=== PATIENT | male | born 1970 | race Caucasian/White ===

== ENCOUNTER 2021-09-26 01:37 | Day surgery (SDC) | payer BC, SELFPAY ==
[2021-09-06 13:47] VITALS: BMI 30.2
[2021-09-26 06:38] VITALS: BP 130/83; PULSE 66; RESP 18; TEMP 36.1; O2SAT 98; BMI 30.2
[2021-09-26] MEDS: LACTATED RINGERS 1,000 ML 150 ML IV CONT (07:01)
--- NOTE | 2021-09-26 07:41 | WPDANESEPPF ---
Anes - Initial Pre Proc Eval Procedure: Operation Date: 09/26/21 08:00 Proposed Procedures p Screening Colonoscopy - Corey Engle MD Date/Time: 09/26/21 07:41 Surgeon: Corey Engle MD Pre Op Diagnosis: hx of colon polyps Patient Data Age: 51 Gender: M Height: 1.75 m Weight: 92.7 kg Last Vital Signs Temp 96.9 F L 09/26/21 06:38 Pulse 66 09/26/21 06:38 Resp 18 09/26/21 06:38 BP 130/83 09/26/21 06:38 Pulse Ox 98 09/26/21 06:38 O2 Del Method Room Air 09/26/21 06:38 Allergies Allergy/AdvReac Type Severity Reaction Status Date / Time No Known Allergies Allergy Verified 09/26/21 06:46 Home Medications Medication Instructions Recorded Confirmed Type aspirin 81 mg capsule 81 mg PO DAILY 09/06/21 09/26/21 History atorvastatin 10 mg tablet 10 mg PO DAILY 09/06/21 09/26/21 History loratadine 10 mg tablet (Claritin) 10 mg PO DAILY 09/06/21 09/26/21 History omega-3 fatty acids 1 cap PO DAILY 09/06/21 09/26/21 History Patient hx anesthesia problems: none Family hx anesthesia problems: none Results Review: All pre-operative results and documents have been reviewed as part of the pre-operative evaluation. [facility] Social History Social History Alcohol intake: current Drinks per week: 5 Substance use: current Substance use type: marijuana Living arrangements: with family Spiritual care concerns: No Anes - Eval Final PreProcedure Day of Procedure 09/26/21 07:41 Patient weight: obese Heart: regular rate and rhythm Lungs: clear to auscultation Airway: Mallampati scale class II Neurological: alert and oriented Last oral intake: >/= 8 hours ASA classification: III Emergent: no Anesthetic plan: proceed Anesthesia type and monitoring: general GIVS and standard monitoring Results Review: All pre-operative results and documents have been reviewed as part of the pre-operative evaluation. Informed Consent: The patient's anesthetic plan and its attendant risks and benefits were discussed with the patient/family/POA. Questions were solicited and answers provided to the satisfaction of the patient/family/POA.
--- NOTE | 2021-09-26 07:44 | PM.HPGS ---
History of Present Illness History of Present Illness Consent: Risks, benefits, and alternatives have been discussed and questions answered. Patient agrees to proceed with procedure. Chief complaint: hx of colon polyps Narrative: Paulo Hemphill is a 51 year old male with colon cancer at 44yo, s/p surgery, now getting colonoscopies every 3 years Review of Systems Constitutional: Constitutional: Denies headache(s) and Denies weakness Eyes: Eyes: Denies blurry vision ENT: Reports Normal hearing present, Denies headache(s) and Denies neck pain Cardiovascular: Cardiovascular: Denies chest pain and Denies dyspnea Respiratory: Respiratory: Denies dyspnea Gastrointestinal: Gastrointestinal: Reports no additional gastrointestinal complaints Genitourinary: Genitourinary: Denies dysuria Musculoskeletal: Musculoskeletal: Denies neck pain Integumentary/Breasts: Skin/Breast: Denies dry skin Neurologic: Reports Normal hearing present, Denies headache(s) and Denies weakness Psychiatric: Psychiatric: Denies anxiety Endocrine: Endocrine: Denies change in body appearance Hematologic/Lymphatic: Hematologic/Lymphatic: Denies easy bleeding Allergic/Immunologic: Allergic/Immunologic: Denies urticaria PMFSH Past Medical History Medical History (Updated 09/26/21 @ 07:45 by Corey Engle MD) Colon cancer Social History Social History Alcohol intake: current Drinks per week: 5 Substance use: current Substance use type: marijuana Living arrangements: with family Spiritual care concerns: No Meds Home Medications and Allergies Home Medications Medication Instructions Recorded Confirmed Type aspirin 81 mg capsule 81 mg PO DAILY 09/06/21 09/26/21 History atorvastatin 10 mg tablet 10 mg PO DAILY 09/06/21 09/26/21 History loratadine 10 mg tablet (Claritin) 10 mg PO DAILY 09/06/21 09/26/21 History omega-3 fatty acids 1 cap PO DAILY 09/06/21 09/26/21 History Allergies Allergy/AdvReac Type Severity Reaction Status Date / Time No Known Allergies Allergy Verified 09/26/21 06:46 Vital Signs Vital Signs - 24 hr 09/26/21 06:38 Temperature 96.9 F L Pulse Rate 66 Respiratory Rate 18 Blood Pressure 130/83 Pulse Oximetry 98 Oxygen Delivery Room Air Exam Const: General: comfortable and no acute distress HENMT: General nose exam: Normal nares present Eyes: General: appearance normal, both eyes and all related structures Neck: Neck: no JVD Resp: Auscultation: clear to auscultation bilaterally Cardio: Rate: regular rate Rhythm: regular rhythm GI: Inspection: non-distended GI Palp: Yes Soft to palpation Skin: General skin exam: normal color Neuro: General: gait normal Speech: normal speech Extrem: General: normal to inspection Psych: Mental Status: mental status grossly normal Assessment and Plan Assessment and plan (1) Colon cancer: Code(s): C18.9 - Malignant neoplasm of colon, unspecified Status: Acute Assessment and Plan: already treated, last colonoscopy negative, due to have another one
[2021-09-26 08:03] VITALS: BP 101/68; PULSE 66; RESP 16; O2SAT 95
[2021-09-26 08:13] VITALS: BP 103/69; PULSE 61; RESP 16; O2SAT 96
[2021-09-26 08:23] VITALS: BP 111/74; PULSE 65; RESP 15; O2SAT 100
== END 2021-09-26 08:38 | disposition home or self-care (01) ==
PROVIDERS: PCP Internal Medicine; Visit Provider Internal Medicine Gastroenterology
PROC: 0DJD8ZZ Inspection of Lower Intestinal Tract, Via Natural or Artificial Opening Endoscopic (ICD-10-PCS; CPT 45378; principal; 2021-09-26 08:00)
DX: Z12.11 Encounter for screening for malignant neoplasm of colon (principal); K63.5 Polyp of colon; K64.8 Other hemorrhoids; Z98.0 Intestinal bypass and anastomosis status; Z90.49 Acquired absence of other specified parts of digestive tract; Z86.010 Personal history of colon polyps; Z85.038 Personal history of other malignant neoplasm of large intestine; F12.90 Cannabis use, unspecified, uncomplicated; Z79.82 Long term (current) use of aspirin; E66.9 Obesity, unspecified; Z68.30 Body mass index [BMI] 30.0-30.9, adult
CPT/HCPCS: 45385; 88305; J2704; J7120

== ENCOUNTER 2022-02-08 00:40 | Day surgery (SDC) | payer BC, SELFPAY ==
[2022-01-29 14:07] VITALS: BMI 30.3
[2022-02-08 10:36] VITALS: BP 127/87; PULSE 76; RESP 18; TEMP 36.2; O2SAT 97; BMI 31.4
[2022-02-08] MEDS: LACTATED RINGERS 1,000 ML 150 ML IV CONT (10:48)
--- NOTE | 2022-02-08 11:20 | PM.HPGS ---
History of Present Illness History of Present Illness Consent: Risks, benefits, and alternatives have been discussed and questions answered. Patient agrees to proceed with procedure. Chief complaint: GERD, abd distention Narrative: Paulo Hemphill is a 52 year old male with gerd specially at bedtime, used omeprazole few times as needed and would help, never had egd. Also soft stools. Review of Systems Constitutional: Constitutional: Denies headache(s) and Denies weakness Eyes: Eyes: Denies blurry vision ENT: Reports Normal hearing present, Denies headache(s) and Denies neck pain Cardiovascular: Cardiovascular: Denies chest pain and Denies dyspnea Respiratory: Respiratory: Denies dyspnea Gastrointestinal: Gastrointestinal: Reports no additional gastrointestinal complaints Genitourinary: Genitourinary: Denies dysuria Musculoskeletal: Musculoskeletal: Denies neck pain Integumentary/Breasts: Skin/Breast: Denies dry skin Neurologic: Reports Normal hearing present, Denies headache(s) and Denies weakness Psychiatric: Psychiatric: Denies anxiety Endocrine: Endocrine: Denies change in body appearance Hematologic/Lymphatic: Hematologic/Lymphatic: Denies easy bleeding Allergic/Immunologic: Allergic/Immunologic: Denies urticaria PMFSH Past Medical History Medical History (Updated 01/16/22 @ 12:44 by Alida Hardy, SUSIE) Acid reflux Bloating Colon cancer Elevated ALT measurement Gas bloat syndrome Loose stools Obesity [place] Family History Family History (Updated 12/05/21 @ 14:40 by Dania Woodall MA) Grandparent Carcinoma of colon Social History Social History Smoking status: Never smoker Alcohol intake: current Drinks per week: 2 Substance use: current Substance use type: marijuana Living arrangements: with family Spiritual care concerns: No Meds Home Medications and Allergies Home Medications Medication Instructions Recorded Confirmed Type atorvastatin 10 mg tablet 10 mg PO DAILY 09/06/21 02/08/22 History loratadine 10 mg tablet (Claritin) 10 mg PO DAILY 09/06/21 02/08/22 History omega-3 fatty acids 1 cap PO DAILY 09/06/21 02/08/22 History cholecalciferol (vitamin D3) 10 10 mcg PO DAILY 12/05/21 02/08/22 History mcg (400 unit) capsule vitamin B comp and C no.3 15 mg-10 1 cap PO DAILY 12/05/21 02/08/22 History mg-50 mg-5 mg-300 mg capsule (B Complex Plus Vitamin C) coenzyme Q10 100 mg capsule 200 mg PO DAILY 01/29/22 02/08/22 History (CoQ-10) glucosamine sulfate 500 mg tablet 1,000 mg PO DAILY 01/29/22 02/08/22 History (Glucosamine) Allergies Allergy/AdvReac Type Severity Reaction Status Date / Time No Known Allergies Allergy Verified 02/08/22 10:35 Vital Signs Vital Signs - 24 hr 02/08/22 10:36 Temperature 97.1 F L Pulse Rate 76 Respiratory Rate 18 Blood Pressure 127/87 Pulse Oximetry 97 Oxygen Delivery Room Air Exam Const: General: comfortable and no acute distress HENMT: Face/Nose/Sinus: Normal nares present Eyes: General: appearance normal, both eyes and all related structures Neck: Neck: no JVD Resp: Auscultation: clear to auscultation bilaterally Cardio: Rate: regular rate Rhythm: regular rhythm GI: Inspection: non-distended GI Palp: Yes Soft to palpation Skin: General skin exam: normal color Neuro: General: gait normal Speech: normal speech Extrem: General: normal to inspection Psych: Mental Status: mental status grossly normal Assessment and Plan Assessment and plan (1) Acid reflux: Code(s): K21.9 - Gastro-esophageal reflux disease without esophagitis Status: Acute Assessment and Plan: egd with bx (2) Loose stools: Code(s): R19.5 - Other fecal abnormalities Status: Acute Assessment and Plan: will assess for celiac
--- NOTE | 2022-02-08 11:31 | WPDANESEPPF ---
Anes - Initial Pre Proc Eval Procedure: Operation Date: 02/08/22 11:45 Proposed Procedures p Esophagogastroduodenoscopy EGD - Corey Engle MD Date/Time: 02/08/22 11:31 Surgeon: Corey Engle MD Pre Op Diagnosis: GERD, abd distention Patient Data Age: 52 Gender: M Height: 1.75 m Weight: 96.6 kg Last Vital Signs Temp 36.2 C L 02/08/22 10:36 Pulse 76 02/08/22 10:36 Resp 18 02/08/22 10:36 BP 127/87 02/08/22 10:36 Pulse Ox 97 02/08/22 10:36 O2 Del Method Room Air 02/08/22 10:36 Allergies Allergy/AdvReac Type Severity Reaction Status Date / Time No Known Allergies Allergy Verified 02/08/22 10:35 Home Medications Medication Instructions Recorded Confirmed Type atorvastatin 10 mg tablet 10 mg PO DAILY 09/06/21 02/08/22 History loratadine 10 mg tablet (Claritin) 10 mg PO DAILY 09/06/21 02/08/22 History omega-3 fatty acids 1 cap PO DAILY 09/06/21 02/08/22 History cholecalciferol (vitamin D3) 10 10 mcg PO DAILY 12/05/21 02/08/22 History mcg (400 unit) capsule vitamin B comp and C no.3 15 mg-10 1 cap PO DAILY 12/05/21 02/08/22 History mg-50 mg-5 mg-300 mg capsule (B Complex Plus Vitamin C) coenzyme Q10 100 mg capsule 200 mg PO DAILY 01/29/22 02/08/22 History (CoQ-10) glucosamine sulfate 500 mg tablet 1,000 mg PO DAILY 01/29/22 02/08/22 History (Glucosamine) Patient hx anesthesia problems: none Family hx anesthesia problems: none Results Review: All pre-operative results and documents have been reviewed as part of the pre-operative evaluation. COUNTS INCLUDE 234 BEDS AT THE [facility] Past Medical History Medical History Acid reflux Bloating Colon cancer Elevated ALT measurement Gas bloat syndrome Loose stools Obesity [place] Family History Family History Grandparent Carcinoma of colon Social History Social History Smoking status: Never smoker Alcohol intake: current Drinks per week: 2 Substance use: current Substance use type: marijuana Living arrangements: with family Spiritual care concerns: No Anes - Eval Final PreProcedure Day of Procedure 02/08/22 11:31 Patient weight: obese Heart: regular rate and rhythm Lungs: clear to auscultation Airway: Mallampati scale class II Neurological: alert and oriented Last oral intake: >/= 8 hours ASA classification: II Emergent: no Anesthetic plan: proceed Anesthesia type and monitoring: general GIVS and standard monitoring Results Review: All pre-operative results and documents have been reviewed as part of the pre-operative evaluation. Informed Consent: The patient's anesthetic plan and its attendant risks and benefits were discussed with the patient/family/POA. Questions were solicited and answers provided to the satisfaction of the patient/family/POA.
[2022-02-08 11:47] VITALS: BP 108/76; PULSE 75; RESP 18; O2SAT 97
[2022-02-08 11:57] VITALS: BP 125/85; PULSE 71; RESP 15; O2SAT 95
[2022-02-08 12:07] VITALS: BP 117/90; PULSE 64; RESP 18; O2SAT 100
== END 2022-02-08 12:27 | disposition home or self-care (01) ==
PROVIDERS: PCP Internal Medicine; Visit Provider Internal Medicine Gastroenterology
PROC: 0DJ08ZZ Inspection of Upper Intestinal Tract, Via Natural or Artificial Opening Endoscopic (ICD-10-PCS; CPT 43235; principal; 2022-02-08 11:45)
DX: K21.9 Gastro-esophageal reflux disease without esophagitis (principal); R19.5 Other fecal abnormalities; E66.9 Obesity, unspecified; Z68.31 Body mass index [BMI] 31.0-31.9, adult
CPT/HCPCS: 43239; 88305; J2704; J7120